=== PATIENT | male | born 1995 | race Caucasian/White ===

== ENCOUNTER 2024-09-06 18:48 | Emergency (ER) | payer MEDICAID ==
[~2024-09-06] VITALS: Ht 172.7 cm; Wt 59.0 kg
[2024-09-06] MEDS ORDERED: HUMALOG100 UNIT/2 SC (19:07)
[2024-09-06] MEDS ORDERED: SODIUM CHLORIDE 0.9% 1,000 ML IV ONE (19:40)
[2024-09-06] MEDS ORDERED: Ondansetron Hydrochloride 4 MG/2 ML VIAL IV ONE (19:40)
[2024-09-06 19:43] LABS: BASO % 0.3 % (0.0-1.0); HEMATOCRIT 37.1 % (42.0-52.0); MEAN CELL VOLUME 85.7 fl (80.0-94.0); MEAN CORPUSCULAR HGB 28.6 pg (27.0-31.0); MEAN CORPUSCULAR HGB CONC 33.4 g/dl (33.0-37.0); MEAN PLATELET VOLUME 11.8 fl (9.6-12.3); MONO # 0.5 10*3/uL (0.1-1.0); NEUT # 6.6 10*3/uL (2.3-7.9); NEUT % 83.5 % (47.0-73.0); PLATELET COUNT AUTOMATED 184 10*3/uL (130-400); RED BLOOD COUNT 4.33 10*6/uL (4.50-5.90); RED CELL DISTRI WIDTH 13.1 % (0-14.5); WHITE BLOOD COUNT 7.9 10*3/uL (4.8-10.8)
[2024-09-06 20:07] LABS: ALKALINE PHOSPHATASE 73 U/L (46-116); BUN 12 mg/dl (9-23); CHLORIDE 101 mmol/L (98-107); LIPASE 20 U/L (12-53); POTASSIUM 3.6 mmol/L (3.4-5.1); SGPT/ALT 20 U/L (5-49); TOTAL PROTEIN 6.7 gm/dL (6.0-8.0)
[2024-09-06] MEDS ORDERED: HYDROmorphONE Hydrochloride 0.5 MG/0.5 ML SYRINGE IV ONE ×2 (21:55→23:25)
[2024-09-06] MEDS ORDERED: METRONIDAZOLE 500 MG TAB PO ONE (23:25)
[2024-09-06] MEDS ORDERED: Ciprofloxacin Hydrochloride 500 MG TAB PO ONE (23:25)
[2024-09-06] MEDS ORDERED: METRONIDAZOLE500 M1 PO (23:28)
[2024-09-06] MEDS ORDERED: CIPRO500 MG PO (23:28)
== END 2024-09-06 23:36 | disposition home or self-care (01) ==
LOC: ED 18:48
PROVIDERS: Internal Medicine
DX: K52.9 Noninfective gastroenteritis and colitis, unspecified (principal); R11.2 Nausea with vomiting, unspecified; K82.8 Other specified diseases of gallbladder; D64.9 Anemia, unspecified; Z88.8 Allergy status to other drugs, medicaments and biological substances; Z93.1 Gastrostomy status